=== PATIENT | male | born 1935 | race Caucasian/White ===

== ENCOUNTER → 2017-12-18 | Outpatient (CLI) | payer OTHER ==
[~2017-12-18] MED LIST: ASPI-515 PO; AZIT250T PO; CEFD300C37 PO; CHLO12TA PO; DOCU-131 PO; FURO20TA3 PO; GUAI5LIQ PO; LISI5TAB7 PO; METO25TA91 PO; OXYC1TAB7 PO; POTA20TA6 PO; SIMV20TA PO
== END | disposition home or self-care (01) ==
LOC: CFH 14:31
PROVIDERS: ATTEND Internal Medicine Cardiovascular Disease
DX: R91.8 Other nonspecific abnormal finding of lung field (principal); J90 Pleural effusion, not elsewhere classified; J96.91 Respiratory failure, unspecified with hypoxia; I10 Essential (primary) hypertension; I42.0 Dilated cardiomyopathy; R94.31 Abnormal electrocardiogram [ECG] [EKG]
CPT/HCPCS: 71046

== ENCOUNTER 2018-02-05 10:54 | Inpatient (IN) | payer OTHER ==
[~2018-02-05] VITALS: Ht 175.3 cm; Wt 67.1 kg
[~2018-02-05 10:54] MED LIST changes: +LEVO750T26 PO
[2018-02-05] MEDS ORDERED: PANTOPRAZOLE 80 MG in SODIUM CHLORIDE 0.9% 100 ML IV SCH (11:03)
[2018-02-05] MEDS ORDERED: SODIUM CHLORIDE 0.9% 1,000 ML IV ONE (11:03)
[2018-02-05] MEDS ORDERED: PANTOPRAZOLE 80 MG in SODIUM CHLORIDE 0.9% 50 ML IVPB ONE (11:03)
[2018-02-05 11:24] LABS: BASOPHILS # (AUTO) 0.02 x10^3/uL (0-0.1); BASOPHILS % (AUTO) 0 % (0-1); EOSINOPHILS # (AUTO) 0.45 x10^3/uL (0-0.4); EOSINOPHILS % (AUTO) 7 % (1-7); LYMPHOCYTES # (AUTO) 0.62 x10^3/uL (1-3.4); LYMPHOCYTES % (AUTO) 9 % (22-44); MD NO; MEAN CORPUSCULAR HEMOGLOBIN 28.8 pg (27.5-34.5); MEAN CORPUSCULAR HGB CONC 32.9 g/dL (33.2-36.2); MEAN CORPUSCULAR VOLUME 87.3 fL (81-97); MEAN PLATELET VOLUME 7.8 fL (7.4-10.4); MONOCYTES # (AUTO) 0.67 x10^3/uL (0.2-0.8); MONOCYTES % (AUTO) 10 % (2-9); NEUTROPHILS # (AUTO) 4.93 x10^3/uL (1.8-6.8); NEUTROPHILS % (AUTO) 74 % (42-75); PLATELET COUNT 379 x10^3/uL (130-400); RED BLOOD COUNT 3.76 x10^6/uL (4.38-5.82); RED CELL DISTRIBUTION WIDTH 15.4 % (9.4-14.8)
[2018-02-05 11:30] LABS: INTERNATIONAL NORMALIZED RATIO 1.01 (0.93-1.1); PROTHROMBIN TIME 10.5 Seconds (9.6-11.5)
[2018-02-05] MEDS ORDERED: SODIUM CHLORIDE 0.9% 1,000ML IVBOLUS ONE (11:30)
[2018-02-05] MEDS ORDERED: SODIUM CHLORIDE FLUSH 10ML SYR IVF ONE (11:30)
[2018-02-05 11:33] LABS: ALBUMIN 2.2 g/dL (3.4-5.0); ANION GAP 4 mmol/L (5-15); CALCIUM 8.3 mg/dL (8.5-10.1); CHLORIDE 98 mmol/L (98-107); CREATININE 0.58 mg/dL (0.7-1.3)
[2018-02-05 11:36] LABS: ALANINE AMINOTRANSFERASE 25 U/L (12-78); ALKALINE PHOSPHATASE 76 U/L (45-117); BILIRUBIN,TOTAL 0.3 mg/dL (0.2-1.0); TOTAL PROTEIN 6.5 g/dL (6.4-8.2)
[2018-02-05] MEDS ORDERED: METR500T8 PO (11:41)
[2018-02-05] MEDS ORDERED: ENOX80SY5 SQ (11:41)
[2018-02-05] MEDS ORDERED: HYDR-3245 PO (11:41)
[2018-02-05] MEDS ORDERED: ASPI-496 PO (11:41)
[2018-02-05] MEDS ORDERED: BISACODYL 10 MG SUPP PR PRN (13:00)
[2018-02-05] MEDS ORDERED: PROMETHAZINE 25 MG/ML, 1ML IM PRN (13:00)
[2018-02-05] MEDS: LACTOBACILLUS CHEW TABLET PO SCH ×3 (13:00→20:23)
[2018-02-05] MEDS ORDERED: VANCOMYCIN PMX 1GM/200ML 200 ML IV ONE (13:00)
[2018-02-05] MEDS ORDERED: LABETALOL 5MG/ML, 20ML IVPush PRN (13:00)
[2018-02-05] MEDS ORDERED: ONDANSETRON 2MG/ML, 2ML IVPush PRN (13:00)
[2018-02-05] MEDS ORDERED: morphine SULFATE 10 MG/ML, 1ML IVPush PRN (13:00)
[2018-02-05] MEDS ORDERED: VANCOMYCIN PER PHARMACY MC PRN (13:00)
[2018-02-05] MEDS ORDERED: ONDANSETRON ODT 4 MG PO PRN (13:00)
[2018-02-05] MEDS ORDERED: hydrALAzine 20 MG/ML, 1ML IVPush PRN (13:00)
[2018-02-05] MEDS ORDERED: POLYETHYLENE GLYCOL 17 GM PACKET PO PRN (13:00)
[2018-02-05] MEDS ORDERED: OMNIPAQUE 350 MG/ML, 100ML BOTTLE ONE (13:47)
[2018-02-05 13:49] LABS: HEMOGLOBIN A1C 5.7 % (4.2-6.3)
[2018-02-05 13:50] LABS: FREE T4 (FREE THYROXINE) 1.05 ng/dL (0.76-1.46); THYROID STIMULATING HORMONE 1.34 mIU/L (0.358-3.740)
[2018-02-05] MEDS: PIPERACILLIN/TAZO/PMX 3.375GM 50 ML IV SCH ×2 (14:01→20:23)
[2018-02-05] MEDS ORDERED: PHARMACOKINETIC CONSULTATION MC ONE (14:30)
[2018-02-05] MEDS ORDERED: PHARMACOKINETIC MONITORING MC PRN (14:30)
[2018-02-05 14:40] VITALS: BP 102/47
[2018-02-05 14:56] LABS: MICROSCOPIC INDICATED
[2018-02-05 14:59] LABS: CULTURE INDICATED? NO
[2018-02-05] MEDS: PANTOPRAZOLE 40 MG IV IVPush SCH (15:54)
[2018-02-05] MEDS: VANCOMYCIN 1,200 MG in SODIUM CHLORIDE 0.9% 250 ML IV SCH (15:57)
[2018-02-05 17:43] VITALS: BP 121/67
[2018-02-05 19:15] VITALS: BP 105/59
[2018-02-06 02:00] VITALS: BP 117/67
[2018-02-06] MEDS: PIPERACILLIN/TAZO/PMX 3.375GM 50 ML IV SCH ×4 (02:40→20:49)
[2018-02-06] MEDS: METOPROLOL SUCCINATE 25 MG TAB.ER.24H PO SCH (05:44)
[2018-02-06] MEDS: LACTOBACILLUS CHEW TABLET PO SCH ×4 (05:45→20:49)
[2018-02-06 05:53] LABS: CHLORIDE 104 mmol/L (98-107)
[2018-02-06 06:02] LABS: ALANINE AMINOTRANSFERASE 17 U/L (12-78); ALBUMIN 1.9 g/dL (3.4-5.0); ALKALINE PHOSPHATASE 59 U/L (45-117); ANION GAP 4 mmol/L (5-15); BILIRUBIN,TOTAL 0.5 mg/dL (0.2-1.0); CALCIUM 8.3 mg/dL (8.5-10.1); CHOL/HDL RATIO 2.8; CHOLESTEROL, TOTAL 130 mg/dL (140-239); CREATININE 0.51 mg/dL (0.7-1.3); HDL CHOL % 35 % (26-37); HDL CHOLESTEROL (DIRECT) 46 mg/dL (40-60); LDL CHOLESTEROL,CALCULATED 69 mg/dL (54-169); LDL/HDL RATIO 1.5 (0.5-3.0); TOTAL PROTEIN 5.6 g/dL (6.4-8.2); TRIGLYCERIDES 75 mg/dL (50-200); VLDL CHOLESTEROL 15 mg/dL (0-25)
[2018-02-06 06:09] LABS: BASOPHILS # (AUTO) 0.05 x10^3/uL (0-0.1); BASOPHILS % (AUTO) 1 % (0-1); EOSINOPHILS # (AUTO) 0.41 x10^3/uL (0-0.4); EOSINOPHILS % (AUTO) 7 % (1-7); LYMPHOCYTES # (AUTO) 0.56 x10^3/uL (1-3.4); LYMPHOCYTES % (AUTO) 10 % (22-44); MD NO; MEAN CORPUSCULAR HEMOGLOBIN 28.4 pg (27.5-34.5); MEAN CORPUSCULAR HGB CONC 32.9 g/dL (33.2-36.2); MEAN CORPUSCULAR VOLUME 86.3 fL (81-97); MEAN PLATELET VOLUME 7.7 fL (7.4-10.4); MONOCYTES # (AUTO) 0.72 x10^3/uL (0.2-0.8); MONOCYTES % (AUTO) 13 % (2-9); NEUTROPHILS % (AUTO) 69 % (42-75); PLATELET COUNT 325 x10^3/uL (130-400); RED BLOOD COUNT 3.22 x10^6/uL (4.38-5.82); RED CELL DISTRIBUTION WIDTH 15.1 % (9.4-14.8)
[2018-02-06] MEDS: SENNA/DOCUSATE TABLET PO SCH (07:25)
[2018-02-06 09:00] VITALS: BP 97/59
[2018-02-06 12:48] VITALS: BP 122/70
[2018-02-06] MEDS: PANTOPRAZOLE 40 MG IV IVPush SCH (14:31)
[2018-02-06 14:41] VITALS: BP 99/61
[2018-02-06] MEDS: VANCOMYCIN 1,200 MG in SODIUM CHLORIDE 0.9% 250 ML IV SCH (15:52)
[2018-02-06 19:09] VITALS: BP 104/59
[2018-02-07 02:10] VITALS: BP 129/69
[2018-02-07] MEDS: PIPERACILLIN/TAZO/PMX 3.375GM 50 ML IV SCH ×4 (02:26→21:51)
[2018-02-07 03:47] LABS: BASOPHILS # (AUTO) 0.01 x10^3/uL (0-0.1); BASOPHILS % (AUTO) 0 % (0-1); EOSINOPHILS # (AUTO) 0.23 x10^3/uL (0-0.4); EOSINOPHILS % (AUTO) 3 % (1-7); LYMPHOCYTES # (AUTO) 0.54 x10^3/uL (1-3.4); LYMPHOCYTES % (AUTO) 7 % (22-44); MD NO; MEAN CORPUSCULAR HEMOGLOBIN 28.4 pg (27.5-34.5); MEAN CORPUSCULAR HGB CONC 32.2 g/dL (33.2-36.2); MEAN PLATELET VOLUME 7.9 fL (7.4-10.4); MONOCYTES # (AUTO) 0.76 x10^3/uL (0.2-0.8); MONOCYTES % (AUTO) 10 % (2-9); NEUTROPHILS # (AUTO) 6.11 x10^3/uL (1.8-6.8); NEUTROPHILS % (AUTO) 80 % (42-75); PLATELET COUNT 321 x10^3/uL (130-400); RED BLOOD COUNT 3.08 x10^6/uL (4.38-5.82)
[2018-02-07 03:54] LABS: ANION GAP 4 mmol/L (5-15); CALCIUM 8.3 mg/dL (8.5-10.1); CHLORIDE 103 mmol/L (98-107); CREATININE 0.62 mg/dL (0.7-1.3)
[2018-02-07] MEDS: ACETAMINOPHEN 325 MG TABLET PO PRN ×2 (04:38→04:44)
[2018-02-07] MEDS: LACTOBACILLUS CHEW TABLET PO SCH ×4 (06:28→20:01)
[2018-02-07] MEDS: METOPROLOL SUCCINATE 25 MG TAB.ER.24H PO SCH (06:28)
[2018-02-07 08:15] VITALS: BP 100/57
[2018-02-07] MEDS ORDERED: PROPOFOL 10 MG/ML, 20ML ONE ×2 (08:37→11:27)
[2018-02-07] MEDS ORDERED: FENTANYL PF 250 MCG/5ML ONE (08:37)
[2018-02-07] MEDS ORDERED: ROCURONIUM 10MG/ML,5ML ONE ×2 (08:38→11:28)
[2018-02-07] MEDS ORDERED: WATER-INJECTION,STERILE 10 ML IV ONE (08:38)
[2018-02-07] MEDS ORDERED: CEFAZOLIN 1,000 MG ONE ×2 (08:38)
[2018-02-07] MEDS ORDERED: NEOSTIGMINE 1 MG/ML, 10ML ONE (08:39)
[2018-02-07] MEDS ORDERED: GLYCOPYRROLATE 0.4 MG/2 ML, 2ML ONE ×2 (08:39→09:58)
[2018-02-07] MEDS ORDERED: NEOSPORIN OINT, 15GM ONE (08:47)
[2018-02-07] MEDS ORDERED: BUPIVACAINE/PF-EPI 0.5% 1:200K ONE (08:47)
[2018-02-07] MEDS ORDERED: hydrALAzine 20 MG/ML, 1ML IV PRN (09:00)
[2018-02-07] MEDS ORDERED: MEPERIDINE/PF 25MG/0.5ML IVPush PRN (09:00)
[2018-02-07] MEDS ORDERED: OXYcodone 5 MG/5 ML ORAL.SOL UDC PO PRN (09:00)
[2018-02-07] MEDS ORDERED: PROMETHAZINE 25 MG/ML, 1ML IV PRN (09:00)
[2018-02-07] MEDS ORDERED: ONDANSETRON ODT 8 MG PO PRN (09:00)
[2018-02-07] MEDS ORDERED: HYDROmorphone 1 MG/ML, 1ML IV PRN ×2 (09:00→13:00)
[2018-02-07] MEDS ORDERED: PROMETHAZINE 25 MG SUPP PR PRN (09:00)
[2018-02-07] MEDS ORDERED: FENTANYL PF 100 MCG/2ML IV PRN (09:00)
[2018-02-07] MEDS ORDERED: ALBUTEROL SULFATE 2.5 MG/3 ML NPPB PRN (09:00)
[2018-02-07] MEDS ORDERED: PROMETHAZINE 12.5 MG SUPP PR PRN (09:00)
[2018-02-07] MEDS ORDERED: LABETALOL 5MG/ML, 20ML IV PRN (09:00)
[2018-02-07] MEDS ORDERED: BUPIVACAINE/PF-EPI 0.5% 1:200K IM ONE (09:53)
[2018-02-07] MEDS: MORPHINE SULFATE 4 MG/ML, 1ML IVPush PRN ×4 (10:55→11:30)
[2018-02-07] MEDS ORDERED: MORPHINE SULFATE 4 MG/ML, 1ML ONE (10:55)
[2018-02-07] MEDS ORDERED: MIDAZOLAM 1 MG/ML, 2ML ONE (11:25)
[2018-02-07] MEDS ORDERED: PROPOFOL 100 ML IV ONE (12:14)
[2018-02-07] MEDS ORDERED: PROPOFOL 100 ML IV PRN (12:30)
[2018-02-07] MEDS ORDERED: ONDANSETRON 2MG/ML, 2ML IV PRN ×2 (13:00)
[2018-02-07] MEDS: PANTOPRAZOLE 40 MG IV IVPush SCH (13:00)
[2018-02-07] MEDS ORDERED: ONDANSETRON ODT 4 MG PO PRN (13:00)
[2018-02-07] MEDS ORDERED: POTASSIUM CHLORIDE 20 MEQ in LACTATED RINGERS 1,000 ML IV SCH (13:00)
[2018-02-07] MEDS ORDERED: SENNOSIDES 8.8 MG/5 ML ORAL SOL NG PRN (13:30)
[2018-02-07] MEDS ORDERED: FENTANYL PF 100 MCG/2ML IVPush PRN (13:30)
[2018-02-07] MEDS ORDERED: PHARMACY MAY ADJ FOR RENAL FX MC SCH (13:30)
[2018-02-07] MEDS ORDERED: SODIUM CHLORIDE 0.9%, 500ML IV ONE (13:30)
[2018-02-07] MEDS: ALBUTEROL/IPRATROPIUM 2.5MG/0.5MG, 3 ML INLINE SCH ×3 (13:30→22:44)
[2018-02-07] MEDS ORDERED: LACTULOSE 20 GM/30 ML UDC NG PRN (13:30)
[2018-02-07] MEDS ORDERED: LIDOCAINE-MPF 1%, 2ML ENDO PRN (13:30)
[2018-02-07] MEDS ORDERED: SENNA/DOCUSATE TABLET NG PRN (13:30)
[2018-02-07] MEDS ORDERED: BISACODYL 10 MG SUPP PR PRN (13:30)
[2018-02-07] MEDS: SENNA/DOCUSATE TABLET PO SCH (13:31)
[2018-02-07] MEDS: SODIUM CHLORIDE 0.9% 1,000 ML IV SCH (15:25)
[2018-02-07] MEDS ORDERED: HYDROmorphone 2 MG/ML, 1ML ONE (16:42)
[2018-02-07] MEDS ORDERED: SODIUM CHLORIDE 0.9%, 500ML IVBOLUS ONE ×3 (17:00→21:00)
[2018-02-07] MEDS: PROPOFOL 100 ML IV PRN (17:31)
[2018-02-07] MEDS: VANCOMYCIN 1,200 MG in SODIUM CHLORIDE 0.9% 250 ML IV SCH (17:39)
[2018-02-07] MEDS ORDERED: NOREPINEPHRINE 4 MG in SODIUM CHLORIDE 0.9% 246 ML IV PRN (18:00)
[2018-02-07] MEDS ORDERED: FENTANYL PF 100 MCG/2ML ONE (19:31)
[2018-02-07] MEDS: FENTANYL PF 100 MCG/2ML IVPush PRN (19:35)
[2018-02-07 21:47] VITALS: BP 80/44
[2018-02-07 22:00] VITALS: BP 114/51
[2018-02-07 22:15] VITALS: BP 94/47
[2018-02-08] MEDS: FENTANYL PF 100 MCG/2ML IVPush PRN ×4 (02:50→15:11)
[2018-02-08] MEDS: PROPOFOL 100 ML IV PRN (02:51)
[2018-02-08] MEDS: ACETAMINOPHEN 650 MG SUPP PR PRN ×2 (02:51→03:06)
[2018-02-08] MEDS: ALBUTEROL/IPRATROPIUM 2.5MG/0.5MG, 3 ML INLINE SCH ×3 (02:57→10:18)
[2018-02-08] MEDS: PIPERACILLIN/TAZO/PMX 3.375GM 50 ML IV SCH ×4 (03:27→21:43)
[2018-02-08] MEDS: SODIUM CHLORIDE 0.9% 1,000 ML IV SCH ×3 (03:27→21:44)
[2018-02-08] MEDS: LACTOBACILLUS CHEW TABLET PO SCH ×4 (03:27→21:43)
[2018-02-08] MEDS: METOPROLOL SUCCINATE 25 MG TAB.ER.24H PO SCH (03:27)
[2018-02-08 05:49] LABS: MEAN CORPUSCULAR HEMOGLOBIN 29.6 pg (27.5-34.5); MEAN CORPUSCULAR VOLUME 87.2 fL (81-97); MEAN PLATELET VOLUME 8.4 fL (7.4-10.4); PLATELET COUNT 274 x10^3/uL (130-400); RED BLOOD COUNT 2.59 x10^6/uL (4.38-5.82); RED CELL DISTRIBUTION WIDTH 15.1 % (9.4-14.8)
[2018-02-08 05:51] LABS: CHLORIDE 107 mmol/L (98-107)
[2018-02-08 06:01] LABS: ALANINE AMINOTRANSFERASE 13 U/L (12-78); ALBUMIN 1.7 g/dL (3.4-5.0); ALKALINE PHOSPHATASE 51 U/L (45-117); ANION GAP 6 mmol/L (5-15); CALCIUM 7.4 mg/dL (8.5-10.1); TOTAL PROTEIN 4.9 g/dL (6.4-8.2)
[2018-02-08 06:13] LABS: BASOPHILS # (AUTO) 0.02 x10^3/uL (0-0.1); BASOPHILS % (AUTO) 0 % (0-1); EOSINOPHILS # (AUTO) 0.01 x10^3/uL (0-0.4); EOSINOPHILS % (AUTO) 0 % (1-7); LYMPHOCYTES # (AUTO) 0.59 x10^3/uL (1-3.4); LYMPHOCYTES % (AUTO) 6 % (22-44); MD SCAN; MONOCYTES # (AUTO) 1.06 x10^3/uL (0.2-0.8); MONOCYTES % (AUTO) 11 % (2-9); NEUTROPHILS % (AUTO) 83 % (42-75)
[2018-02-08] MEDS: SENNA/DOCUSATE TABLET PO SCH (07:48)
[2018-02-08] MEDS: PANTOPRAZOLE 40 MG IV IV SCH (09:14)
[2018-02-08] MEDS ORDERED: MAGNESIUM SULFATE 3 GM in SODIUM CHLORIDE 0.9% 100 ML IV ONE (11:30)
[2018-02-08] MEDS ORDERED: PHENYLEPHRINE NASAL 1%, 15ML SPRAY NAS PRN (11:30)
[2018-02-08] MEDS ORDERED: ALBUTEROL/IPRATROPIUM 2.5MG/0.5MG, 3 ML NPPB SCH (13:00)
[2018-02-08] MEDS: OXYcodone IR 5MG TABLET PO PRN ×3 (16:40→23:34)
[2018-02-08] MEDS: VANCOMYCIN 1,200 MG in SODIUM CHLORIDE 0.9% 250 ML IV SCH (18:07)
[2018-02-09] VITALS (8 sets, daily range): BP systolic 99–127; BP diastolic 43–61
[2018-02-09] MEDS: PIPERACILLIN/TAZO/PMX 3.375GM 50 ML IV SCH ×4 (03:34→21:52)
[2018-02-09] MEDS: SODIUM CHLORIDE 0.9% 1,000 ML IV SCH (03:35)
[2018-02-09 04:04] LABS: ANION GAP 2 mmol/L (5-15); CALCIUM 7.7 mg/dL (8.5-10.1); CHLORIDE 110 mmol/L (98-107); CREATININE 0.49 mg/dL (0.7-1.3)
[2018-02-09 04:35] LABS: BASOPHILS # (AUTO) 0.02 x10^3/uL (0-0.1); BASOPHILS % (AUTO) 0 % (0-1); EOSINOPHILS # (AUTO) 0.08 x10^3/uL (0-0.4); EOSINOPHILS % (AUTO) 1 % (1-7); LYMPHOCYTES # (AUTO) 0.57 x10^3/uL (1-3.4); LYMPHOCYTES % (AUTO) 6 % (22-44); MD NO; MEAN CORPUSCULAR HEMOGLOBIN 29.7 pg (27.5-34.5); MEAN CORPUSCULAR HGB CONC 33.7 g/dL (33.2-36.2); MEAN CORPUSCULAR VOLUME 88.1 fL (81-97); MEAN PLATELET VOLUME 8.3 fL (7.4-10.4); MONOCYTES # (AUTO) 1.07 x10^3/uL (0.2-0.8); MONOCYTES % (AUTO) 11 % (2-9); NEUTROPHILS # (AUTO) 7.84 x10^3/uL (1.8-6.8); NEUTROPHILS % (AUTO) 82 % (42-75); PLATELET COUNT 224 x10^3/uL (130-400); RED BLOOD COUNT 2.23 x10^6/uL (4.38-5.82); RED CELL DISTRIBUTION WIDTH 15.3 % (9.4-14.8)
[2018-02-09] MEDS: METOPROLOL SUCCINATE 25 MG TAB.ER.24H PO SCH (06:02)
[2018-02-09] MEDS: LACTOBACILLUS CHEW TABLET PO SCH ×4 (06:02→21:51)
[2018-02-09] MEDS: OXYcodone IR 5MG TABLET PO PRN (06:34)
[2018-02-09] MEDS: PANTOPRAZOLE 40 MG IV IV SCH (07:25)
[2018-02-09] MEDS: SENNA/DOCUSATE TABLET PO SCH (07:25)
[2018-02-09] MEDS ORDERED: SODIUM PHOSPHATE 20 MMOL in SODIUM CHLORIDE 0.9% 500 ML IV ONE (07:30)
[2018-02-09] MEDS: DOXYCYCLINE 100 MG in DEXTROSE 5% 250 ML IV SCH ×2 (09:45→22:55)
[2018-02-09] MEDS ORDERED: SILVER NITRATE STICK TP ONE (17:17)
[2018-02-09] MEDS: ALBUTEROL/IPRATROPIUM 2.5MG/0.5MG, 3 ML NPPB PRN (20:50)
[2018-02-09] MEDS: SODIUM CHLORIDE FLUSH 10ML SYR IVF SCH (21:52)
[2018-02-09] MEDS: OXYMETAZOLINE NASAL SPRAY 0.05%, 15ML NAS SCH (21:52)
[2018-02-10] MEDS: OXYcodone IR 5MG TABLET PO PRN ×3 (02:38→22:45)
[2018-02-10] MEDS: PIPERACILLIN/TAZO/PMX 3.375GM 50 ML IV SCH ×3 (03:30→17:49)
[2018-02-10 04:06] VITALS: BP 117/57
[2018-02-10] MEDS: ALBUTEROL/IPRATROPIUM 2.5MG/0.5MG, 3 ML NPPB PRN ×2 (04:30→11:43)
[2018-02-10 05:58] VITALS: BP 100/48
[2018-02-10] MEDS: METOPROLOL SUCCINATE 25 MG TAB.ER.24H PO SCH (06:00)
[2018-02-10] MEDS: LACTOBACILLUS CHEW TABLET PO SCH ×4 (06:07→20:58)
[2018-02-10] MEDS ORDERED: SODIUM PHOSPHATE 10 MMOL in SODIUM CHLORIDE 0.9% 500 ML IV ONE (07:30)
[2018-02-10] MEDS: OXYMETAZOLINE NASAL SPRAY 0.05%, 15ML NAS SCH ×2 (09:00→20:58)
[2018-02-10] MEDS: SENNA/DOCUSATE TABLET PO SCH ×3 (09:00→17:52)
[2018-02-10 09:13] VITALS: BP 106/50
[2018-02-10] MEDS: SODIUM CHLORIDE FLUSH 10ML SYR IVF SCH ×2 (10:57→20:59)
[2018-02-10] MEDS: DOXYCYCLINE 100 MG in DEXTROSE 5% 250 ML IV SCH (10:57)
[2018-02-10] MEDS ORDERED: LIDOCAINE-MPF 1%, 2ML ONE (11:42)
[2018-02-10 15:25] VITALS: BP 110/58
[2018-02-10 19:14] VITALS: BP 104/52
[2018-02-10] MEDS: DOXYCYCLINE 100MG CAP PO SCH (20:58)
[2018-02-11] MEDS: PIPERACILLIN/TAZO/PMX 3.375GM 50 ML IV SCH ×4 (00:08→18:54)
[2018-02-11 00:27] VITALS: BP 108/57
[2018-02-11] MEDS: OXYcodone IR 5MG TABLET PO PRN (04:56)
[2018-02-11] MEDS: ALBUTEROL/IPRATROPIUM 2.5MG/0.5MG, 3 ML NPPB PRN (05:24)
[2018-02-11] MEDS: LACTOBACILLUS CHEW TABLET PO SCH ×4 (05:46→21:29)
[2018-02-11] MEDS: METOPROLOL SUCCINATE 25 MG TAB.ER.24H PO SCH (05:46)
[2018-02-11 08:17] LABS: BASOPHILS # (AUTO) 0.02 x10^3/uL (0-0.1); BASOPHILS % (AUTO) 0 % (0-1); EOSINOPHILS # (AUTO) 0.34 x10^3/uL (0-0.4); EOSINOPHILS % (AUTO) 5 % (1-7); LYMPHOCYTES % (AUTO) 7 % (22-44); MD NO; MEAN CORPUSCULAR HEMOGLOBIN 29.4 pg (27.5-34.5); MEAN CORPUSCULAR HGB CONC 32.9 g/dL (33.2-36.2); MEAN CORPUSCULAR VOLUME 89.3 fL (81-97); MEAN PLATELET VOLUME 7.8 fL (7.4-10.4); MONOCYTES # (AUTO) 0.92 x10^3/uL (0.2-0.8); MONOCYTES % (AUTO) 12 % (2-9); NEUTROPHILS % (AUTO) 76 % (42-75); PLATELET COUNT 232 x10^3/uL (130-400); RED BLOOD COUNT 2.83 x10^6/uL (4.38-5.82); RED CELL DISTRIBUTION WIDTH 15.3 % (9.4-14.8)
[2018-02-11] MEDS: DOXYCYCLINE 100MG CAP PO SCH ×2 (08:35→21:29)
[2018-02-11] MEDS: SENNA/DOCUSATE TABLET PO SCH (08:35)
[2018-02-11] MEDS: OXYMETAZOLINE NASAL SPRAY 0.05%, 15ML NAS SCH ×2 (08:35→21:30)
[2018-02-11] MEDS: SODIUM CHLORIDE FLUSH 10ML SYR IVF SCH ×2 (08:36→21:30)
[2018-02-11 09:43] VITALS: BP 105/60
[2018-02-11 14:28] VITALS: BP 123/65
[2018-02-11 21:06] VITALS: BP 115/66
[2018-02-12] MEDS: PIPERACILLIN/TAZO/PMX 3.375GM 50 ML IV SCH ×5 (00:15→23:52)
[2018-02-12 01:56] VITALS: BP 128/69
[2018-02-12 05:55] VITALS: BP 113/67
[2018-02-12] MEDS: LACTOBACILLUS CHEW TABLET PO SCH ×4 (05:56→21:25)
[2018-02-12] MEDS: METOPROLOL SUCCINATE 25 MG TAB.ER.24H PO SCH (05:56)
[2018-02-12] MEDS: OXYMETAZOLINE NASAL SPRAY 0.05%, 15ML NAS SCH (07:20)
[2018-02-12] MEDS ORDERED: OXYM15SP8 NAS (07:59)
[2018-02-12] MEDS ORDERED: DOXY100C2 PO (07:59)
[2018-02-12] MEDS ORDERED: ACID1TAB7 PO (07:59)
[2018-02-12 08:11] VITALS: BP 105/56
[2018-02-12] MEDS: SENNA/DOCUSATE TABLET PO SCH (09:10)
[2018-02-12] MEDS: DOXYCYCLINE 100MG CAP PO SCH ×2 (09:10→21:25)
[2018-02-12] MEDS: SODIUM CHLORIDE FLUSH 10ML SYR IVF SCH ×2 (09:11→21:25)
[2018-02-12 14:32] VITALS: BP 115/64
[2018-02-12] MEDS ORDERED: PIPE3.373 IV (15:53)
[2018-02-12 18:44] VITALS: BP 107/61
[2018-02-13 01:29] VITALS: BP 96/54
[2018-02-13] MEDS: LACTOBACILLUS CHEW TABLET PO SCH ×4 (05:41→20:51)
[2018-02-13] MEDS: PIPERACILLIN/TAZO/PMX 3.375GM 50 ML IV SCH ×3 (05:43→17:14)
[2018-02-13 05:44] VITALS: BP 105/56
[2018-02-13] MEDS: METOPROLOL SUCCINATE 25 MG TAB.ER.24H PO SCH (05:44)
[2018-02-13 08:00] VITALS: BP 106/53
[2018-02-13] MEDS: DOXYCYCLINE 100MG CAP PO SCH ×2 (08:26→20:51)
[2018-02-13] MEDS: SENNA/DOCUSATE TABLET PO SCH (08:26)
[2018-02-13] MEDS: SODIUM CHLORIDE FLUSH 10ML SYR IVF SCH ×2 (08:32→20:51)
[2018-02-13 13:59] VITALS: BP 100/58
[2018-02-13 18:45] VITALS: BP 127/62
[2018-02-14] MEDS: PIPERACILLIN/TAZO/PMX 3.375GM 50 ML IV SCH ×4 (00:21→18:11)
[2018-02-14 01:08] VITALS: BP 113/60
[2018-02-14] MEDS: METOPROLOL SUCCINATE 25 MG TAB.ER.24H PO SCH (06:14)
[2018-02-14] MEDS: LACTOBACILLUS CHEW TABLET PO SCH ×4 (06:14→21:30)
[2018-02-14 07:05] VITALS: BP 109/66
[2018-02-14] MEDS: DOXYCYCLINE 100MG CAP PO SCH ×2 (10:56→21:30)
[2018-02-14] MEDS: SENNA/DOCUSATE TABLET PO SCH (10:56)
[2018-02-14] MEDS: SODIUM CHLORIDE FLUSH 10ML SYR IVF SCH ×2 (11:04→21:30)
[2018-02-14 13:36] VITALS: BP 97/54
[2018-02-14 19:13] VITALS: BP 102/54
[2018-02-14] MEDS: ACETAMINOPHEN 325 MG TABLET PO PRN (21:30)
[2018-02-15] MEDS: PIPERACILLIN/TAZO/PMX 3.375GM 50 ML IV SCH ×5 (00:08→23:43)
[2018-02-15 02:22] VITALS: BP 105/61
[2018-02-15 06:30] VITALS: BP 119/58
[2018-02-15] MEDS: METOPROLOL SUCCINATE 25 MG TAB.ER.24H PO SCH (06:33)
[2018-02-15] MEDS: LACTOBACILLUS CHEW TABLET PO SCH ×4 (06:34→20:40)
[2018-02-15] MEDS: DOXYCYCLINE 100MG CAP PO SCH ×2 (07:57→20:40)
[2018-02-15] MEDS: SODIUM CHLORIDE FLUSH 10ML SYR IVF SCH ×2 (07:57→22:12)
[2018-02-15] MEDS: SENNA/DOCUSATE TABLET PO SCH (07:57)
[2018-02-15 12:13] VITALS: BP 120/63
[2018-02-15 18:47] VITALS: BP 102/56
[2018-02-15] MEDS: ACETAMINOPHEN 325 MG TABLET PO PRN (22:12)
[2018-02-16 02:19] VITALS: BP 114/66
[2018-02-16] MEDS: ACETAMINOPHEN 325 MG TABLET PO PRN (06:09)
[2018-02-16] MEDS: LACTOBACILLUS CHEW TABLET PO SCH ×2 (06:09→11:50)
[2018-02-16] MEDS: METOPROLOL SUCCINATE 25 MG TAB.ER.24H PO SCH (06:09)
[2018-02-16] MEDS: PIPERACILLIN/TAZO/PMX 3.375GM 50 ML IV SCH ×2 (06:09→11:50)
[2018-02-16 08:15] VITALS: BP 124/58
[2018-02-16] MEDS: SODIUM CHLORIDE FLUSH 10ML SYR IVF SCH (10:02)
[2018-02-16] MEDS: DOXYCYCLINE 100MG CAP PO SCH (10:02)
[2018-02-16] MEDS: SENNA/DOCUSATE TABLET PO SCH (10:02)
[2018-02-16 14:20] VITALS: BP 118/62
== END 2018-02-16 15:07 | DRG 163 ==
LOC: ED 11:19 → EDIP 12:54 → 4WST 14:23 → CCU 02-07 11:49 → 4NOR 02-09 11:12
PROVIDERS: ADMIT Internal Medicine; ATTEND Internal Medicine
PROC: 30233N1 Transfusion of Nonautologous Red Blood Cells into Peripheral Vein, Percutaneous Approach (ICD-10-PCS; 2018-02-07)
PROC: 02HV33Z Insertion of Infusion Device into Superior Vena Cava, Percutaneous Approach (ICD-10-PCS; 2018-02-07)
PROC: 0BH17EZ Insertion of Endotracheal Airway into Trachea, Via Natural or Artificial Opening (ICD-10-PCS; 2018-02-07)
PROC: 0BNK0ZZ Release Right Lung, Open Approach (ICD-10-PCS; principal; 2018-02-07 09:00)
PROC: 02HV33Z Insertion of Infusion Device into Superior Vena Cava, Percutaneous Approach (ICD-10-PCS; 2018-02-12)
PROC: B548ZZA Ultrasonography of Superior Vena Cava, Guidance (ICD-10-PCS; 2018-02-12)
DX: J85.0 Gangrene and necrosis of lung (principal); J96.20 Acute and chronic respiratory failure, unspecified whether with hypoxia or hypercapnia; E43 Unspecified severe protein-calorie malnutrition; J15.1 Pneumonia due to Pseudomonas; Z99.11 Dependence on respirator [ventilator] status; J96.10 Chronic respiratory failure, unspecified whether with hypoxia or hypercapnia; I11.0 Hypertensive heart disease with heart failure; I47.2 Ventricular tachycardia; I42.9 Cardiomyopathy, unspecified; I50.22 Chronic systolic (congestive) heart failure; L89.90 Pressure ulcer of unspecified site, unspecified stage; D64.9 Anemia, unspecified; B96.5 Pseudomonas (aeruginosa) (mallei) (pseudomallei) as the cause of diseases classified elsewhere; Z16.11 Resistance to penicillins; Z91.018 Allergy to other foods; Z68.21 Body mass index [BMI] 21.0-21.9, adult; E78.5 Hyperlipidemia, unspecified; I34.0 Nonrheumatic mitral (valve) insufficiency; M19.90 Unspecified osteoarthritis, unspecified site; M40.209 Unspecified kyphosis, site unspecified; R04.0 Epistaxis; Z99.81 Dependence on supplemental oxygen; Z16.23 Resistance to quinolones and fluoroquinolones; B95.7 Other staphylococcus as the cause of diseases classified elsewhere
CPT/HCPCS: 36415; 36430; 36569; 36600; 71045; 71260; 76937; 77001; 80048; 80053; 80061; 80202; 81001; 82533; 82803; 82805; 83036; 83735; 84100; 84439; 84443; 84478; 85014; 85018; 85025; 85610; 85730; 86850; 86900; 86923; 87040; 87070; 87077; 87081; 87186; 87205; 93005; 94002; 94640; C1729; J0690; J1170; J2250; J2543; J2704; J2710; J3010; J3370; J3475; J3490; J7060; J7620; Q9967; C1751; C9113; J7030; J7040; J7050; P9016

== ENCOUNTER 2018-02-17 09:10 | Inpatient (IN) | payer OTHER ==
[~2018-02-17] VITALS: Ht 167.6 cm; Wt 58.2 kg
[~2018-02-17 09:10] MED LIST changes: +ACID1TAB7 PO; +ASPI-496 PO; +DOXY100C2 PO; +ENOX80SY5 SQ; +HYDR-3245 PO; +METR500T8 PO; +OXYM15SP8 NAS; +PIPE3.373 IV
[2018-02-17 11:23] LABS: MICROSCOPIC INDICATED
[2018-02-17 11:33] LABS: CULTURE INDICATED? YES
[2018-02-17 13:52] LABS: MEAN CORPUSCULAR HEMOGLOBIN 29.7 pg (27.5-34.5); MEAN CORPUSCULAR HGB CONC 32.8 g/dL (33.2-36.2); MEAN CORPUSCULAR VOLUME 90.7 fL (81-97); MEAN PLATELET VOLUME 7.5 fL (7.4-10.4); PLATELET COUNT 405 x10^3/uL (130-400); RED BLOOD COUNT 3.65 x10^6/uL (4.38-5.82); RED CELL DISTRIBUTION WIDTH 15.4 % (9.4-14.8)
[2018-02-17 14:00] LABS: ANION GAP 6 mmol/L (5-15); CALCIUM 9.3 mg/dL (8.5-10.1); CHLORIDE 97 mmol/L (98-107); CREATININE 0.45 mg/dL (0.7-1.3)
[2018-02-17 14:13] LABS: BASOPHILS # (AUTO) 0.04 x10^3/uL (0-0.1); BASOPHILS % (AUTO) 1 % (0-1); EOSINOPHILS # (AUTO) 0.06 x10^3/uL (0-0.4); EOSINOPHILS % (AUTO) 1 % (1-7); LYMPHOCYTES # (AUTO) 0.57 x10^3/uL (1-3.4); LYMPHOCYTES % (AUTO) 9 % (22-44); MD MORPH REVIEW ONLY; MONOCYTES # (AUTO) 0.59 x10^3/uL (0.2-0.8); MONOCYTES % (AUTO) 9 % (2-9); NEUTROPHILS # (AUTO) 5.27 x10^3/uL (1.8-6.8); NEUTROPHILS % (AUTO) 81 % (42-75)
[2018-02-17] MEDS ORDERED: MORPHINE SULFATE 4 MG/ML, 1ML ONE (14:13)
[2018-02-17 14:14] LABS: HYPOCHROMIA 1+
[2018-02-17 14:15] LABS: LARGE PLATELETS 1+
[2018-02-17 14:17] LABS: <PLATELET ESTIMATE> INCREASED
[2018-02-17] MEDS ORDERED: morphine SULFATE 10 MG/ML, 1ML IVPush ONE (14:30)
[2018-02-17] MEDS ORDERED: OMNIPAQUE 350 MG/ML, 100ML BOTTLE ONE (14:47)
[2018-02-17] MEDS ORDERED: POLYETHYLENE GLYCOL 17 GM PACKET PO PRN (18:30)
[2018-02-17] MEDS ORDERED: hydrALAzine 20 MG/ML, 1ML IVPush PRN (18:30)
[2018-02-17] MEDS ORDERED: ACETAMINOPHEN 325 MG TABLET PO PRN (18:30)
[2018-02-17] MEDS ORDERED: PROMETHAZINE 25 MG/ML, 1ML IM PRN (18:30)
[2018-02-17] MEDS ORDERED: BISACODYL 10 MG SUPP PR PRN (18:30)
[2018-02-17] MEDS ORDERED: ONDANSETRON 2MG/ML, 2ML IVPush PRN (18:30)
[2018-02-17] MEDS ORDERED: OXYcodone/APAP 5/325MG TABLET PO PRN (18:30)
[2018-02-17] MEDS ORDERED: ONDANSETRON ODT 4 MG PO PRN (18:30)
[2018-02-17] MEDS ORDERED: PIPERACILLIN/TAZO 3.375 GM VIAL IV SCH (19:00)
[2018-02-17 19:25] LABS: FREE T4 (FREE THYROXINE) 1.2 ng/dL (0.76-1.46); THYROID STIMULATING HORMONE 1.89 mIU/L (0.358-3.740)
[2018-02-17 19:28] LABS: HEMOGLOBIN A1C 5.1 % (4.2-6.3)
[2018-02-17] MEDS: PIPERACILLIN/TAZO/PMX 3.375GM 50 ML IV SCH (20:28)
[2018-02-17] MEDS: OXYMETAZOLINE NASAL SPRAY 0.05%, 15ML NAS SCH (21:00)
[2018-02-17 22:35] VITALS: BP 109/59
[2018-02-18] MEDS: FUROSEMIDE 20 MG TABLET PO SCH ×3 (01:11→20:10)
[2018-02-18] MEDS: DOXYCYCLINE 100MG CAP PO SCH ×3 (01:11→20:10)
[2018-02-18] MEDS: LACTOBACILLUS CHEW TABLET PO SCH ×5 (01:11→20:10)
[2018-02-18] MEDS: PIPERACILLIN/TAZO/PMX 3.375GM 50 ML IV SCH ×4 (02:21→20:10)
[2018-02-18 02:40] VITALS: BP 121/57
[2018-02-18 04:58] LABS: ALANINE AMINOTRANSFERASE 12 U/L (12-78); ALBUMIN 1.7 g/dL (3.4-5.0); ANION GAP 3 mmol/L (5-15); CALCIUM 8.5 mg/dL (8.5-10.1); CHLORIDE 100 mmol/L (98-107); CHOLESTEROL, TOTAL 169 mg/dL (140-239); CREATININE 0.58 mg/dL (0.7-1.3)
[2018-02-18 05:00] LABS: ALKALINE PHOSPHATASE 76 U/L (45-117); BILIRUBIN,TOTAL 0.3 mg/dL (0.2-1.0); CHOL/HDL RATIO 3.8; HDL CHOL % 26 % (26-37); HDL CHOLESTEROL (DIRECT) 44 mg/dL (40-60); LDL CHOLESTEROL,CALCULATED 112 mg/dL (54-169); LDL/HDL RATIO 2.5 (0.5-3.0); TOTAL PROTEIN 5.8 g/dL (6.4-8.2); TRIGLYCERIDES 67 mg/dL (50-200); VLDL CHOLESTEROL 13 mg/dL (0-25)
[2018-02-18 05:09] LABS: BASOPHILS # (AUTO) 0.02 x10^3/uL (0-0.1); BASOPHILS % (AUTO) 0 % (0-1); EOSINOPHILS # (AUTO) 0.12 x10^3/uL (0-0.4); EOSINOPHILS % (AUTO) 2 % (1-7); LYMPHOCYTES # (AUTO) 0.54 x10^3/uL (1-3.4); LYMPHOCYTES % (AUTO) 8 % (22-44); MD NO; MEAN CORPUSCULAR HEMOGLOBIN 30.1 pg (27.5-34.5); MEAN CORPUSCULAR HGB CONC 32.8 g/dL (33.2-36.2); MEAN CORPUSCULAR VOLUME 91.6 fL (81-97); MEAN PLATELET VOLUME 7.5 fL (7.4-10.4); MONOCYTES # (AUTO) 0.91 x10^3/uL (0.2-0.8); MONOCYTES % (AUTO) 14 % (2-9); NEUTROPHILS # (AUTO) 4.93 x10^3/uL (1.8-6.8); NEUTROPHILS % (AUTO) 76 % (42-75); PLATELET COUNT 345 x10^3/uL (130-400); RED CELL DISTRIBUTION WIDTH 15.1 % (9.4-14.8)
[2018-02-18] MEDS: METOPROLOL SUCCINATE 25 MG TAB.ER.24H PO SCH (06:36)
[2018-02-18 07:35] VITALS: BP 130/82
[2018-02-18] MEDS: LISINOPRIL 5 MG TABLET PO SCH (07:57)
[2018-02-18] MEDS: POTASSIUM CHLORIDE 20 MEQ TAB.ER.PRT PO SCH (07:57)
[2018-02-18] MEDS: OXYMETAZOLINE NASAL SPRAY 0.05%, 15ML NAS SCH ×2 (09:00→20:11)
[2018-02-18 13:58] VITALS: BP 81/40
[2018-02-18 19:17] VITALS: BP 95/51
[2018-02-19 01:57] VITALS: BP 117/45
[2018-02-19] MEDS: PIPERACILLIN/TAZO/PMX 3.375GM 50 ML IV SCH ×4 (02:13→20:38)
[2018-02-19 04:28] LABS: BASOPHILS # (AUTO) 0.03 x10^3/uL (0-0.1); BASOPHILS % (AUTO) 1 % (0-1); EOSINOPHILS # (AUTO) 0.21 x10^3/uL (0-0.4); EOSINOPHILS % (AUTO) 4 % (1-7); LYMPHOCYTES # (AUTO) 0.57 x10^3/uL (1-3.4); LYMPHOCYTES % (AUTO) 10 % (22-44); MD NO; MEAN CORPUSCULAR HEMOGLOBIN 30.2 pg (27.5-34.5); MEAN CORPUSCULAR VOLUME 91.4 fL (81-97); MEAN PLATELET VOLUME 7.5 fL (7.4-10.4); MONOCYTES # (AUTO) 0.72 x10^3/uL (0.2-0.8); MONOCYTES % (AUTO) 13 % (2-9); NEUTROPHILS % (AUTO) 73 % (42-75); PLATELET COUNT 342 x10^3/uL (130-400); RED BLOOD COUNT 3.04 x10^6/uL (4.38-5.82); RED CELL DISTRIBUTION WIDTH 15.5 % (9.4-14.8)
[2018-02-19] MEDS: METOPROLOL SUCCINATE 25 MG TAB.ER.24H PO SCH (05:13)
[2018-02-19] MEDS: LACTOBACILLUS CHEW TABLET PO SCH ×4 (05:13→20:39)
[2018-02-19] MEDS: morphine SULFATE 10 MG/ML, 1ML IVPush PRN ×2 (05:38→20:39)
[2018-02-19 07:20] VITALS: BP 107/57
[2018-02-19] MEDS: FUROSEMIDE 20 MG TABLET PO SCH ×2 (07:56→20:41)
[2018-02-19] MEDS: DOXYCYCLINE 100MG CAP PO SCH ×2 (07:56→20:39)
[2018-02-19] MEDS: OXYMETAZOLINE NASAL SPRAY 0.05%, 15ML NAS SCH ×2 (07:56→21:00)
[2018-02-19] MEDS: POTASSIUM CHLORIDE 20 MEQ TAB.ER.PRT PO SCH (07:56)
[2018-02-19] MEDS: LISINOPRIL 5 MG TABLET PO SCH (09:00)
[2018-02-19 14:45] VITALS: BP 97/42
[2018-02-19] MEDS: DOCUSATE 100 MG CAPSULE PO PRN (17:15)
[2018-02-19 18:32] VITALS: BP 105/58
[2018-02-19] MEDS ORDERED: MORPHINE SULFATE 4 MG/ML, 1ML ONE (20:33)
[2018-02-20 01:18] VITALS: BP 102/53
[2018-02-20] MEDS: PIPERACILLIN/TAZO/PMX 3.375GM 50 ML IV SCH ×4 (02:24→22:24)
[2018-02-20 05:39] LABS: ANION GAP 2 mmol/L (5-15); CALCIUM 8.2 mg/dL (8.5-10.1); CHLORIDE 99 mmol/L (98-107)
[2018-02-20 05:41] LABS: CREATININE 0.53 mg/dL (0.7-1.3)
[2018-02-20 05:51] LABS: BASOPHILS # (AUTO) 0.04 x10^3/uL (0-0.1); BASOPHILS % (AUTO) 1 % (0-1); EOSINOPHILS # (AUTO) 0.19 x10^3/uL (0-0.4); EOSINOPHILS % (AUTO) 3 % (1-7); LYMPHOCYTES # (AUTO) 0.63 x10^3/uL (1-3.4); LYMPHOCYTES % (AUTO) 8 % (22-44); MEAN CORPUSCULAR HGB CONC 32.9 g/dL (33.2-36.2); MEAN CORPUSCULAR VOLUME 91.1 fL (81-97); MEAN PLATELET VOLUME 7.5 fL (7.4-10.4); MONOCYTES % (AUTO) 12 % (2-9); NEUTROPHILS # (AUTO) 5.78 x10^3/uL (1.8-6.8); NEUTROPHILS % (AUTO) 77 % (42-75); PLATELET COUNT 358 x10^3/uL (130-400); RED BLOOD COUNT 3.15 x10^6/uL (4.38-5.82)
[2018-02-20] MEDS: METOPROLOL SUCCINATE 25 MG TAB.ER.24H PO SCH (06:13)
[2018-02-20] MEDS: LACTOBACILLUS CHEW TABLET PO SCH ×4 (06:13→22:24)
[2018-02-20 06:32] LABS: MD NO
[2018-02-20 08:04] VITALS: BP 105/59
[2018-02-20] MEDS: POTASSIUM CHLORIDE 20 MEQ TAB.ER.PRT PO SCH (08:06)
[2018-02-20] MEDS: DOXYCYCLINE 100MG CAP PO SCH ×2 (08:07→22:24)
[2018-02-20] MEDS: FUROSEMIDE 20 MG TABLET PO SCH ×2 (08:07→22:24)
[2018-02-20] MEDS: OXYMETAZOLINE NASAL SPRAY 0.05%, 15ML NAS SCH ×2 (09:00→21:00)
[2018-02-20] MEDS: LISINOPRIL 5 MG TABLET PO SCH (09:00)
[2018-02-20 13:18] VITALS: BP 99/49
[2018-02-20] MEDS: OPIUM/BELLADONNA SUPP.RECT 16.2-30 MG PR PRN (13:31)
[2018-02-20 21:58] VITALS: BP 108/62
[2018-02-21 00:21] VITALS: BP 111/58
[2018-02-21] MEDS: PIPERACILLIN/TAZO/PMX 3.375GM 50 ML IV SCH ×4 (02:00→20:29)
[2018-02-21] MEDS: LACTOBACILLUS CHEW TABLET PO SCH ×4 (06:10→20:29)
[2018-02-21] MEDS: METOPROLOL SUCCINATE 25 MG TAB.ER.24H PO SCH (06:11)
[2018-02-21 08:21] VITALS: BP 95/39
[2018-02-21] MEDS: LISINOPRIL 5 MG TABLET PO SCH (08:23)
[2018-02-21] MEDS: DOXYCYCLINE 100MG CAP PO SCH ×2 (08:24→20:29)
[2018-02-21] MEDS: POTASSIUM CHLORIDE 20 MEQ TAB.ER.PRT PO SCH (08:24)
[2018-02-21] MEDS: OXYMETAZOLINE NASAL SPRAY 0.05%, 15ML NAS SCH ×2 (08:25→21:00)
[2018-02-21] MEDS: FUROSEMIDE 20 MG TABLET PO SCH ×2 (08:26→20:29)
[2018-02-21 13:58] VITALS: BP 101/51
[2018-02-21] MEDS: OPIUM/BELLADONNA SUPP.RECT 16.2-30 MG PR PRN ×2 (14:12→20:44)
[2018-02-21 19:00] VITALS: BP 100/52
[2018-02-22 01:53] VITALS: BP 97/56
[2018-02-22] MEDS: PIPERACILLIN/TAZO/PMX 3.375GM 50 ML IV SCH ×4 (02:06→19:58)
[2018-02-22] MEDS: LACTOBACILLUS CHEW TABLET PO SCH ×4 (06:15→19:58)
[2018-02-22] MEDS: METOPROLOL SUCCINATE 25 MG TAB.ER.24H PO SCH (06:15)
[2018-02-22 09:00] VITALS: BP 106/49
[2018-02-22] MEDS: LISINOPRIL 5 MG TABLET PO SCH (09:00)
[2018-02-22] MEDS: OXYMETAZOLINE NASAL SPRAY 0.05%, 15ML NAS SCH ×4 (09:00→19:59)
[2018-02-22] MEDS: POTASSIUM CHLORIDE 20 MEQ TAB.ER.PRT PO SCH (09:05)
[2018-02-22] MEDS: DOXYCYCLINE 100MG CAP PO SCH ×2 (09:06→19:58)
[2018-02-22] MEDS: FUROSEMIDE 20 MG TABLET PO SCH ×2 (09:06→19:59)
[2018-02-22] MEDS: OXYBUTYNIN CHLORIDE 5 MG TABLET PO SCH ×2 (10:45→19:59)
[2018-02-22 14:21] VITALS: BP 102/50
[2018-02-22 19:52] VITALS: BP 104/51
[2018-02-23] MEDS: PIPERACILLIN/TAZO/PMX 3.375GM 50 ML IV SCH ×3 (01:58→14:03)
[2018-02-23 02:03] VITALS: BP 105/57
[2018-02-23] MEDS: LACTOBACILLUS CHEW TABLET PO SCH ×3 (06:00→15:39)
[2018-02-23] MEDS: METOPROLOL SUCCINATE 25 MG TAB.ER.24H PO SCH (06:00)
[2018-02-23 07:14] VITALS: BP 107/57
[2018-02-23] MEDS: OXYBUTYNIN CHLORIDE 5 MG TABLET PO SCH (08:49)
[2018-02-23] MEDS: FUROSEMIDE 20 MG TABLET PO SCH (08:49)
[2018-02-23] MEDS: DOXYCYCLINE 100MG CAP PO SCH (08:49)
[2018-02-23] MEDS: DOCUSATE 100 MG CAPSULE PO PRN (08:49)
[2018-02-23] MEDS: POTASSIUM CHLORIDE 20 MEQ TAB.ER.PRT PO SCH (08:49)
[2018-02-23] MEDS: LISINOPRIL 5 MG TABLET PO SCH (08:50)
[2018-02-23] MEDS: OXYMETAZOLINE NASAL SPRAY 0.05%, 15ML NAS SCH (08:50)
[2018-02-23] MEDS ORDERED: OPIU1SUP2 PR (11:08)
[2018-02-23] MEDS ORDERED: OXYB5TAB7 PO (11:08)
[2018-02-23] MEDS ORDERED: LISI5TAB7 PO (11:08)
[2018-02-23 13:50] VITALS: BP 103/56
== END 2018-02-23 18:05 | DRG 698 ==
LOC: ED 11:35 → EDIP 17:12 → 4NOR 18:56
PROVIDERS: ADMIT Internal Medicine; ATTEND Internal Medicine
PROC: 0T9B70Z Drainage of Bladder with Drainage Device, Via Natural or Artificial Opening (ICD-10-PCS; principal; 2018-02-17)
DX: T83.018A Breakdown (mechanical) of other urinary catheter, initial encounter (principal); J15.1 Pneumonia due to Pseudomonas; J85.0 Gangrene and necrosis of lung; J96.10 Chronic respiratory failure, unspecified whether with hypoxia or hypercapnia; I50.22 Chronic systolic (congestive) heart failure; N32.89 Other specified disorders of bladder; R31.0 Gross hematuria; I11.0 Hypertensive heart disease with heart failure; L89.90 Pressure ulcer of unspecified site, unspecified stage; Z99.81 Dependence on supplemental oxygen; D64.9 Anemia, unspecified; E78.5 Hyperlipidemia, unspecified; K40.90 Unilateral inguinal hernia, without obstruction or gangrene, not specified as recurrent; Z87.891 Personal history of nicotine dependence; Z79.82 Long term (current) use of aspirin; Z91.018 Allergy to other foods
CPT/HCPCS: 36415; 51702; 74178; 80048; 80053; 80061; 81001; 83036; 83735; 84439; 84443; 85025; 87086; 96374; 99285; J2543; Q9967; J2270

== ENCOUNTER 2018-07-05 12:27 | Inpatient (IN) | payer OTHER ==
[~2018-07-05] VITALS: Ht 167.6 cm; Wt 58.7 kg
[~2018-07-05 12:27] MED LIST changes: +OPIU1SUP2 PR; +OXYB5TAB7 PO
[2018-07-05 13:27] LABS: BASOPHILS # (AUTO) 0.01 x10^3/uL (0-0.1); BASOPHILS % (AUTO) 0 % (0-1); EOSINOPHILS # (AUTO) 0.02 x10^3/uL (0-0.4); EOSINOPHILS % (AUTO) 1 % (1-7); LYMPHOCYTES # (AUTO) 0.33 x10^3/uL (1-3.4); LYMPHOCYTES % (AUTO) 7 % (22-44); MD NO; MEAN CORPUSCULAR HEMOGLOBIN 27.5 pg (27.5-34.5); MEAN CORPUSCULAR HGB CONC 31.7 g/dL (33.2-36.2); MEAN CORPUSCULAR VOLUME 86.8 fL (81-97); MEAN PLATELET VOLUME 7.7 fL (7.4-10.4); MONOCYTES % (AUTO) 9 % (2-9); NEUTROPHILS # (AUTO) 3.78 x10^3/uL (1.8-6.8); NEUTROPHILS % (AUTO) 83 % (42-75); PLATELET COUNT 243 x10^3/uL (130-400); RED BLOOD COUNT 4.19 x10^6/uL (4.38-5.82); RED CELL DISTRIBUTION WIDTH 14.9 % (9.4-14.8)
[2018-07-05] MEDS ORDERED: SODIUM CHLORIDE FLUSH 10ML SYR IVF ONE (13:30)
[2018-07-05] MEDS ORDERED: PIPERACILLIN/TAZO/PMX 4.5GM 100 ML IVPB ONE (13:30)
[2018-07-05 13:40] LABS: ALBUMIN 2.4 g/dL (3.4-5.0); ANION GAP 4 mmol/L (5-15); CALCIUM 9.1 mg/dL (8.5-10.1); CHLORIDE 96 mmol/L (98-107); CREATININE 0.46 mg/dL (0.7-1.3)
[2018-07-05 13:44] LABS: TROPONIN I < 0.015 ng/mL (0.000-0.045)
[2018-07-05] MEDS ORDERED: TRAM50TA2 PO (14:14)
[2018-07-05] MEDS ORDERED: SODIUM CHLORIDE FLUSH 10ML SYR IVF PRN (14:30)
[2018-07-05 15:26] VITALS: BP 145/70
[2018-07-05] MEDS ORDERED: ONDANSETRON ODT 4 MG PO PRN (15:30)
[2018-07-05] MEDS ORDERED: hydrALAzine 20 MG/ML, 1ML IVPush PRN (15:30)
[2018-07-05] MEDS ORDERED: LABETALOL 5MG/ML, 20ML IVPush PRN (15:30)
[2018-07-05] MEDS ORDERED: ONDANSETRON 2MG/ML, 2ML IVPush PRN (15:30)
[2018-07-05] MEDS ORDERED: DOCUSATE 100 MG CAPSULE PO PRN (15:30)
[2018-07-05 17:40] VITALS: BP 130/68
[2018-07-05 19:04] VITALS: BP 166/80
[2018-07-05] MEDS: FUROSEMIDE 20 MG/2 ML IV SCH (19:22)
[2018-07-05] MEDS: HEPARIN 5,000 UNITS/ML, 1ML SQ SCH (19:23)
[2018-07-05] MEDS ORDERED: OMNIPAQUE 350 MG/ML, 75ML BOTTLE ONE (22:45)
[2018-07-05] MEDS: ATORVASTATIN 40 MG TABLET PO SCH (22:55)
[2018-07-06 03:05] VITALS: BP 128/69
[2018-07-06] MEDS: HEPARIN 5,000 UNITS/ML, 1ML SQ SCH (03:30)
[2018-07-06 05:00] LABS: BASOPHILS # (AUTO) 0.02 x10^3/uL (0-0.1); BASOPHILS % (AUTO) 1 % (0-1); EOSINOPHILS # (AUTO) 0.08 x10^3/uL (0-0.4); EOSINOPHILS % (AUTO) 2 % (1-7); LYMPHOCYTES # (AUTO) 0.31 x10^3/uL (1-3.4); LYMPHOCYTES % (AUTO) 8 % (22-44); MD NO; MEAN CORPUSCULAR HEMOGLOBIN 27.5 pg (27.5-34.5); MEAN CORPUSCULAR HGB CONC 31.7 g/dL (33.2-36.2); MEAN CORPUSCULAR VOLUME 86.8 fL (81-97); MEAN PLATELET VOLUME 8.1 fL (7.4-10.4); MONOCYTES # (AUTO) 0.54 x10^3/uL (0.2-0.8); MONOCYTES % (AUTO) 14 % (2-9); NEUTROPHILS % (AUTO) 76 % (42-75); PLATELET COUNT 206 x10^3/uL (130-400); RED BLOOD COUNT 3.56 x10^6/uL (4.38-5.82); RED CELL DISTRIBUTION WIDTH 15.2 % (9.4-14.8)
[2018-07-06 05:11] LABS: ANION GAP 2 mmol/L (5-15); CALCIUM 8.6 mg/dL (8.5-10.1); CHLORIDE 96 mmol/L (98-107); CREATININE 0.37 mg/dL (0.7-1.3)
[2018-07-06] MEDS ORDERED: ASPIRIN 81 MG TABLET EC PO SCH (06:00)
[2018-07-06] MEDS ORDERED: FUROSEMIDE 20 MG/2 ML ONE (08:02)
[2018-07-06] MEDS ORDERED: ASPIRIN 81 MG TABLET EC ONE (08:02)
[2018-07-06] MEDS ORDERED: METOPROLOL SUCCINATE 25 MG TAB.ER.24H ONE (08:02)
[2018-07-06] MEDS ORDERED: LISINOPRIL 5 MG TABLET ONE (08:03)
[2018-07-06] MEDS: LISINOPRIL 5 MG TABLET PO SCH (08:24)
[2018-07-06] MEDS: METOPROLOL SUCCINATE 25 MG TAB.ER.24H PO SCH (08:24)
[2018-07-06] MEDS: FUROSEMIDE 20 MG/2 ML IV SCH ×2 (08:24→17:42)
[2018-07-06 08:25] VITALS: BP 145/68
[2018-07-06 14:36] LABS: CHOL/HDL RATIO 2.7; LDL/HDL RATIO 1.5 (0.5-3.0); THYROID STIMULATING HORMONE 2.36 mIU/L (0.358-3.740)
[2018-07-06 15:40] LABS: HEMOGLOBIN A1C 5.2 % (4.2-6.3)
[2018-07-06 15:48] VITALS: BP 124/66
[2018-07-06 19:13] VITALS: BP 112/63
[2018-07-06] MEDS: ATORVASTATIN 40 MG TABLET PO SCH (20:06)
[2018-07-07 03:57] VITALS: BP 127/71
[2018-07-07] MEDS: METOPROLOL SUCCINATE 25 MG TAB.ER.24H PO SCH (05:05)
[2018-07-07 07:28] VITALS: BP 122/62
[2018-07-07 09:28] LABS: BASOPHILS # (AUTO) 0.02 x10^3/uL (0-0.1); BASOPHILS % (AUTO) 1 % (0-1); EOSINOPHILS # (AUTO) 0.07 x10^3/uL (0-0.4); EOSINOPHILS % (AUTO) 2 % (1-7); LYMPHOCYTES # (AUTO) 0.34 x10^3/uL (1-3.4); LYMPHOCYTES % (AUTO) 9 % (22-44); MD NO; MEAN CORPUSCULAR HEMOGLOBIN 27.3 pg (27.5-34.5); MEAN CORPUSCULAR HGB CONC 31.4 g/dL (33.2-36.2); MEAN CORPUSCULAR VOLUME 86.9 fL (81-97); MEAN PLATELET VOLUME 7.7 fL (7.4-10.4); MONOCYTES # (AUTO) 0.53 x10^3/uL (0.2-0.8); MONOCYTES % (AUTO) 14 % (2-9); NEUTROPHILS % (AUTO) 74 % (42-75); PLATELET COUNT 218 x10^3/uL (130-400); RED BLOOD COUNT 3.66 x10^6/uL (4.38-5.82); RED CELL DISTRIBUTION WIDTH 15.1 % (9.4-14.8)
[2018-07-07 09:39] LABS: CALCIUM 8.8 mg/dL (8.5-10.1); CHLORIDE 95 mmol/L (98-107); CREATININE 0.38 mg/dL (0.7-1.3)
[2018-07-07] MEDS ORDERED: FENTANYL PF 100 MCG/2ML ONE ×2 (09:44)
[2018-07-07] MEDS ORDERED: MIDAZOLAM 1 MG/ML, 5ML ONE (09:45)
[2018-07-07] MEDS ORDERED: NALOXONE 1 MG/ML, 2ML ONE (09:45)
[2018-07-07] MEDS ORDERED: FLUMAZENIL 0.1 MG/1 ML, 5ML ONE (09:45)
[2018-07-07 10:04] LABS: ANION GAP < 1 mmol/L (5-15)
[2018-07-07] MEDS: LISINOPRIL 5 MG TABLET PO SCH (12:09)
[2018-07-07] MEDS: FUROSEMIDE 20 MG/2 ML IV SCH (12:09)
[2018-07-07 12:39] VITALS: BP 107/62
[2018-07-07] MEDS: SODIUM CHLORIDE 0.9% 1,000 ML IV SCH (17:47)
[2018-07-07 19:44] VITALS: BP 129/73
[2018-07-07] MEDS ORDERED: GUAIFENESIN/DM 200-20MG, 10ML UDC ONE (19:47)
[2018-07-07] MEDS: ATORVASTATIN 40 MG TABLET PO SCH (20:36)
[2018-07-07] MEDS: GUAIFENESIN/COD200MG-20MG/10ML LIQUID PO PRN (20:37)
[2018-07-08 01:58] VITALS: BP 133/73
[2018-07-08 05:11] LABS: BASOPHILS # (AUTO) 0.01 x10^3/uL (0-0.1); BASOPHILS % (AUTO) 0 % (0-1); EOSINOPHILS # (AUTO) 0.08 x10^3/uL (0-0.4); EOSINOPHILS % (AUTO) 2 % (1-7); LYMPHOCYTES # (AUTO) 0.39 x10^3/uL (1-3.4); LYMPHOCYTES % (AUTO) 9 % (22-44); MD NO; MEAN CORPUSCULAR HEMOGLOBIN 27.4 pg (27.5-34.5); MEAN CORPUSCULAR HGB CONC 31.3 g/dL (33.2-36.2); MEAN CORPUSCULAR VOLUME 87.4 fL (81-97); MONOCYTES # (AUTO) 0.58 x10^3/uL (0.2-0.8); MONOCYTES % (AUTO) 13 % (2-9); NEUTROPHILS # (AUTO) 3.49 x10^3/uL (1.8-6.8); NEUTROPHILS % (AUTO) 77 % (42-75); PLATELET COUNT 211 x10^3/uL (130-400); RED CELL DISTRIBUTION WIDTH 14.9 % (9.4-14.8)
[2018-07-08 05:19] LABS: % IRON SATURATION 18 % (20-55); ANION GAP 2 mmol/L (5-15); CALCIUM 8.7 mg/dL (8.5-10.1); CHLORIDE 97 mmol/L (98-107); IRON LEVEL 32 mcg/dL (65-175); TOTAL IRON BINDING CAPACITY 178 mcg/dL (250-450)
[2018-07-08] MEDS: METOPROLOL SUCCINATE 25 MG TAB.ER.24H PO SCH (05:28)
[2018-07-08 07:15] VITALS: BP 121/67
[2018-07-08] MEDS: LISINOPRIL 5 MG TABLET PO SCH (08:59)
[2018-07-08] MEDS: SODIUM CHLORIDE 0.9% 1,000 ML IV SCH ×2 (09:00→12:33)
[2018-07-08 12:08] VITALS: BP 118/55
[2018-07-08 18:44] VITALS: BP 116/62
[2018-07-08] MEDS: ATORVASTATIN 40 MG TABLET PO SCH (20:40)
[2018-07-09 00:54] VITALS: BP 128/66
[2018-07-09] MEDS: SODIUM CHLORIDE 0.9% 1,000 ML IV SCH ×4 (02:06→22:03)
[2018-07-09 05:26] VITALS: BP 124/64
[2018-07-09] MEDS: METOPROLOL SUCCINATE 25 MG TAB.ER.24H PO SCH (05:27)
[2018-07-09 07:09] VITALS: BP 116/59
[2018-07-09] MEDS: LISINOPRIL 5 MG TABLET PO SCH (09:00)
[2018-07-09 09:37] LABS: CALCIUM 8.5 mg/dL (8.5-10.1); CREATININE 0.37 mg/dL (0.7-1.3)
[2018-07-09 09:55] LABS: ANION GAP 4 mmol/L (5-15); CHLORIDE 99 mmol/L (98-107)
[2018-07-09 13:04] VITALS: BP 116/67
[2018-07-09] MEDS: FERROUS SULFATE 325 MG TABLET PO SCH ×2 (13:23→16:51)
[2018-07-09 18:43] VITALS: BP 126/72
[2018-07-09] MEDS: ATORVASTATIN 40 MG TABLET PO SCH (22:08)
[2018-07-09] MEDS: GUAIFENESIN/COD200MG-20MG/10ML LIQUID PO PRN (23:07)
[2018-07-10 03:14] VITALS: BP 122/73
[2018-07-10] MEDS: SODIUM CHLORIDE 0.9% 1,000 ML IV SCH ×4 (05:17→23:30)
[2018-07-10] MEDS: METOPROLOL SUCCINATE 25 MG TAB.ER.24H PO SCH (05:18)
[2018-07-10 07:48] VITALS: BP 127/78
[2018-07-10] MEDS: FERROUS SULFATE 325 MG TABLET PO SCH ×3 (08:51→16:58)
[2018-07-10] MEDS: LISINOPRIL 5 MG TABLET PO SCH (08:51)
[2018-07-10 13:13] VITALS: BP 132/76
[2018-07-10 14:15] LABS: BASOPHILS % (AUTO) 0 % (0-1); EOSINOPHILS # (AUTO) 0.11 x10^3/uL (0-0.4); EOSINOPHILS % (AUTO) 2 % (1-7); LYMPHOCYTES # (AUTO) 0.39 x10^3/uL (1-3.4); LYMPHOCYTES % (AUTO) 8 % (22-44); MD NO; MEAN CORPUSCULAR HEMOGLOBIN 27.9 pg (27.5-34.5); MEAN CORPUSCULAR HGB CONC 31.6 g/dL (33.2-36.2); MEAN PLATELET VOLUME 7.9 fL (7.4-10.4); MONOCYTES # (AUTO) 0.44 x10^3/uL (0.2-0.8); MONOCYTES % (AUTO) 9 % (2-9); NEUTROPHILS # (AUTO) 3.79 x10^3/uL (1.8-6.8); NEUTROPHILS % (AUTO) 80 % (42-75); PLATELET COUNT 220 x10^3/uL (130-400); RED BLOOD COUNT 4.09 x10^6/uL (4.38-5.82); RED CELL DISTRIBUTION WIDTH 15.2 % (9.4-14.8)
[2018-07-10 14:24] LABS: ALANINE AMINOTRANSFERASE 18 U/L (12-78); ANION GAP 2 mmol/L (5-15); CALCIUM 8.7 mg/dL (8.5-10.1); CHLORIDE 99 mmol/L (98-107); CREATININE 0.42 mg/dL (0.7-1.3)
[2018-07-10 14:26] LABS: ALKALINE PHOSPHATASE 77 U/L (45-117); BILIRUBIN,TOTAL 0.3 mg/dL (0.2-1.0); TOTAL PROTEIN 6.8 g/dL (6.4-8.2)
[2018-07-10 19:29] VITALS: BP 130/71
[2018-07-10] MEDS: ATORVASTATIN 40 MG TABLET PO SCH (20:58)
[2018-07-10] MEDS: CIPROFLOXACIN 500 MG TABLET PO SCH (20:59)
[2018-07-10] MEDS: ACETAMINOPHEN 325 MG TABLET PO PRN (21:10)
[2018-07-11 02:25] VITALS: BP 121/65
[2018-07-11 05:22] LABS: ALBUMIN 1.7 g/dL (3.4-5.0)
[2018-07-11 05:38] LABS: ANION GAP 3 mmol/L (5-15)
[2018-07-11 05:39] LABS: CHLORIDE 101 mmol/L (98-107)
[2018-07-11 05:42] LABS: ALANINE AMINOTRANSFERASE 13 U/L (12-78); ALKALINE PHOSPHATASE 60 U/L (45-117); BILIRUBIN,TOTAL 0.2 mg/dL (0.2-1.0); CREATININE 0.26 mg/dL (0.7-1.3); TOTAL PROTEIN 5.6 g/dL (6.4-8.2)
[2018-07-11 06:20] LABS: MD YES
[2018-07-11 06:21] LABS: MEAN CORPUSCULAR VOLUME 87.4 fL (81-97); PLATELET COUNT 168 x10^3/uL (130-400); RED BLOOD COUNT 3.35 x10^6/uL (4.38-5.82); RED CELL DISTRIBUTION WIDTH 15.1 % (9.4-14.8)
[2018-07-11 06:23] LABS: BAND#(MANUAL) 0.03 x10^3/uL; BANDS%(MANUAL) 1 % (0-7); BASOS#(MANUAL) 0.03 x10^3/uL (0-0.1); BASOS% (MANUAL) 1 % (0-1); EOS#(MANUAL) 0.12 x10^3/uL (0.0-0.4); EOS% (MANUAL) 4 % (1-7); LYMPH#(MANUAL) 0.22 x10^3/uL (1-3.4); LYMPHS% (MANUAL) 7 % (22-44); MONOS#(MANUAL) 0.34 x10^3/uL (0.3-2.7); MONOS% (MANUAL) 11 % (2-9); SEG#(MANUAL) 2.36 x10^3/uL (1.8-6.8); SEGS% (MANUAL) 76 % (42-75)
[2018-07-11 06:24] LABS: <PLATELET ESTIMATE> ADEQUATE; <PLT MORPHOLOGY> NORMAL PLT MORPH; ANISOCYTOSIS 1+
[2018-07-11 06:28] VITALS: BP 149/67
[2018-07-11] MEDS: METOPROLOL SUCCINATE 25 MG TAB.ER.24H PO SCH (06:28)
[2018-07-11] MEDS: SODIUM CHLORIDE 0.9% 1,000 ML IV SCH ×2 (06:30→13:02)
[2018-07-11] MEDS: GUAIFENESIN/COD200MG-20MG/10ML LIQUID PO PRN ×2 (08:50→17:12)
[2018-07-11] MEDS: ACETAMINOPHEN 325 MG TABLET PO PRN ×2 (08:50→13:02)
[2018-07-11 09:04] VITALS: BP 131/65
[2018-07-11] MEDS: LISINOPRIL 5 MG TABLET PO SCH (09:27)
[2018-07-11] MEDS: FERROUS SULFATE 325 MG TABLET PO SCH ×3 (09:27→17:12)
[2018-07-11] MEDS: CIPROFLOXACIN 500 MG TABLET PO SCH ×2 (09:27→20:49)
[2018-07-11] MEDS: AcetaZOLAMIDE INJ 500 MG IVPush SCH (12:50)
[2018-07-11 14:50] VITALS: BP 121/67
[2018-07-11 19:38] VITALS: BP 134/77
[2018-07-11] MEDS: ATORVASTATIN 40 MG TABLET PO SCH (20:50)
[2018-07-12] VITALS (7 sets, daily range): BP systolic 102–124; BP diastolic 51–64
[2018-07-12] MEDS: AcetaZOLAMIDE INJ 500 MG IVPush SCH ×3 (00:22→23:43)
[2018-07-12] MEDS: METOPROLOL SUCCINATE 25 MG TAB.ER.24H PO SCH (05:13)
[2018-07-12] MEDS: SODIUM CHLORIDE 0.9% 1,000 ML IV SCH (07:39)
[2018-07-12] MEDS: FERROUS SULFATE 325 MG TABLET PO SCH ×3 (09:13→18:20)
[2018-07-12] MEDS: GUAIFENESIN/COD200MG-20MG/10ML LIQUID PO PRN (09:13)
[2018-07-12] MEDS: CIPROFLOXACIN 500 MG TABLET PO SCH ×2 (09:13→20:19)
[2018-07-12] MEDS: LISINOPRIL 5 MG TABLET PO SCH (09:13)
[2018-07-12] MEDS: ACETAMINOPHEN 325 MG TABLET PO PRN ×2 (09:45→23:53)
[2018-07-12 13:01] LABS: ANION GAP 2 mmol/L (5-15); CALCIUM 8.7 mg/dL (8.5-10.1); CHLORIDE 102 mmol/L (98-107); CREATININE 0.39 mg/dL (0.7-1.3)
[2018-07-12] MEDS: ATORVASTATIN 40 MG TABLET PO SCH (20:19)
[2018-07-13 01:55] VITALS: BP 112/61
[2018-07-13 05:12] LABS: BASOPHILS # (AUTO) 0.02 x10^3/uL (0-0.1); BASOPHILS % (AUTO) 0 % (0-1); EOSINOPHILS # (AUTO) 0.09 x10^3/uL (0-0.4); EOSINOPHILS % (AUTO) 2 % (1-7); LYMPHOCYTES % (AUTO) 11 % (22-44); MD NO; MEAN CORPUSCULAR HEMOGLOBIN 28.1 pg (27.5-34.5); MEAN CORPUSCULAR VOLUME 88.1 fL (81-97); MEAN PLATELET VOLUME 8.2 fL (7.4-10.4); MONOCYTES # (AUTO) 0.47 x10^3/uL (0.2-0.8); MONOCYTES % (AUTO) 13 % (2-9); NEUTROPHILS # (AUTO) 2.72 x10^3/uL (1.8-6.8); NEUTROPHILS % (AUTO) 74 % (42-75); PLATELET COUNT 185 x10^3/uL (130-400); RED BLOOD COUNT 3.57 x10^6/uL (4.38-5.82); RED CELL DISTRIBUTION WIDTH 14.8 % (9.4-14.8)
[2018-07-13 05:20] LABS: ANION GAP 2 mmol/L (5-15); CALCIUM 8.7 mg/dL (8.5-10.1); CHLORIDE 103 mmol/L (98-107); CREATININE 0.43 mg/dL (0.7-1.3)
[2018-07-13 05:26] VITALS: BP 123/57
[2018-07-13] MEDS: METOPROLOL SUCCINATE 25 MG TAB.ER.24H PO SCH (05:27)
[2018-07-13 07:16] VITALS: BP 116/60
[2018-07-13] MEDS: CIPROFLOXACIN 500 MG TABLET PO SCH ×2 (09:22→20:39)
[2018-07-13] MEDS: LISINOPRIL 5 MG TABLET PO SCH (09:22)
[2018-07-13] MEDS: FERROUS SULFATE 325 MG TABLET PO SCH ×3 (09:22→18:22)
[2018-07-13] MEDS: GUAIFENESIN/COD200MG-20MG/10ML LIQUID PO PRN (12:22)
[2018-07-13] MEDS: AcetaZOLAMIDE INJ 500 MG IVPush SCH (12:22)
[2018-07-13] MEDS: ACETAMINOPHEN 325 MG TABLET PO PRN ×2 (12:50→20:53)
[2018-07-13 14:03] VITALS: BP 105/58
[2018-07-13] MEDS: LIDODERM 5% PATCH TD SCH (15:02)
[2018-07-13 19:41] VITALS: BP 117/66
[2018-07-13] MEDS: ATORVASTATIN 40 MG TABLET PO SCH (20:39)
[2018-07-14 00:02] VITALS: BP 124/65
[2018-07-14] MEDS: AcetaZOLAMIDE INJ 500 MG IVPush SCH ×3 (00:04→22:49)
[2018-07-14] MEDS: ACETAMINOPHEN 325 MG TABLET PO PRN ×2 (03:31→13:52)
[2018-07-14 05:29] VITALS: BP 105/56
[2018-07-14] MEDS: METOPROLOL SUCCINATE 25 MG TAB.ER.24H PO SCH (05:30)
[2018-07-14] MEDS: CIPROFLOXACIN 500 MG TABLET PO SCH ×2 (08:16→20:51)
[2018-07-14] MEDS: LISINOPRIL 5 MG TABLET PO SCH (08:17)
[2018-07-14] MEDS: FERROUS SULFATE 325 MG TABLET PO SCH ×3 (08:18→16:12)
[2018-07-14 08:52] VITALS: BP 107/65
[2018-07-14 16:10] VITALS: BP 118/69
[2018-07-14] MEDS: LIDODERM 5% PATCH TD SCH (16:12)
[2018-07-14 20:00] VITALS: BP 128/67
[2018-07-14] MEDS: ATORVASTATIN 40 MG TABLET PO SCH (20:51)
[2018-07-15 02:00] VITALS: BP 144/75
[2018-07-15 05:51] VITALS: BP 118/64
[2018-07-15] MEDS: METOPROLOL SUCCINATE 25 MG TAB.ER.24H PO SCH (05:53)
[2018-07-15 07:38] VITALS: BP 128/65
[2018-07-15 09:38] VITALS: BP 120/61
[2018-07-15] MEDS: FERROUS SULFATE 325 MG TABLET PO SCH ×3 (09:40→18:18)
[2018-07-15] MEDS: LISINOPRIL 5 MG TABLET PO SCH (09:41)
[2018-07-15] MEDS: ACETAMINOPHEN 325 MG TABLET PO PRN ×3 (09:41→23:13)
[2018-07-15] MEDS: CIPROFLOXACIN 500 MG TABLET PO SCH ×2 (09:41→20:34)
[2018-07-15] MEDS: AcetaZOLAMIDE INJ 500 MG IVPush SCH ×2 (12:49→22:58)
[2018-07-15] MEDS ORDERED: METO25TA91 PO (13:22)
[2018-07-15] MEDS ORDERED: FERR-51 PO (13:22)
[2018-07-15] MEDS ORDERED: LISI5TAB7 PO (13:22)
[2018-07-15] MEDS ORDERED: DOCU-131 PO (13:22)
[2018-07-15] MEDS ORDERED: ATOR20TA9 PO (13:23)
[2018-07-15 14:00] VITALS: BP 116/65
[2018-07-15] MEDS: LIDODERM 5% PATCH TD SCH (18:16)
[2018-07-15 19:37] VITALS: BP 132/73
[2018-07-15] MEDS: ATORVASTATIN 40 MG TABLET PO SCH (20:34)
[2018-07-16 01:23] VITALS: BP 99/59
[2018-07-16 06:05] VITALS: BP 110/60
[2018-07-16] MEDS: METOPROLOL SUCCINATE 25 MG TAB.ER.24H PO SCH (06:10)
[2018-07-16 07:35] VITALS: BP 108/61
[2018-07-16] MEDS: FERROUS SULFATE 325 MG TABLET PO SCH ×3 (10:03→15:57)
[2018-07-16] MEDS: ACETAMINOPHEN 325 MG TABLET PO PRN ×2 (10:03→15:58)
[2018-07-16] MEDS: CIPROFLOXACIN 500 MG TABLET PO SCH (10:03)
[2018-07-16] MEDS: LISINOPRIL 5 MG TABLET PO SCH (10:04)
[2018-07-16] MEDS: AcetaZOLAMIDE INJ 500 MG IVPush SCH (11:35)
[2018-07-16 14:00] VITALS: BP 136/67
[2018-07-16] MEDS: LIDODERM 5% PATCH TD SCH (17:43)
== END 2018-07-16 18:29 | disposition hospice, home (50) | DRG 177 ==
LOC: ED 13:43 → 3NE 14:29 → 5SO 16:59 → 3NE 17:18 → 5SO 17:28
PROVIDERS: ADMIT Internal Medicine; ATTEND Internal Medicine
PROC: 0BBF3ZX Excision of Right Lower Lung Lobe, Percutaneous Approach, Diagnostic (ICD-10-PCS; principal; 2018-07-07)
PROC: 0WB83ZX Excision of Chest Wall, Percutaneous Approach, Diagnostic (ICD-10-PCS; 2018-07-07)
DX: J15.1 Pneumonia due to Pseudomonas (principal); E43 Unspecified severe protein-calorie malnutrition; I50.43 Acute on chronic combined systolic (congestive) and diastolic (congestive) heart failure; J96.21 Acute and chronic respiratory failure with hypoxia; J96.22 Acute and chronic respiratory failure with hypercapnia; C34.90 Malignant neoplasm of unspecified part of unspecified bronchus or lung; I42.9 Cardiomyopathy, unspecified; J44.0 Chronic obstructive pulmonary disease with (acute) lower respiratory infection; J98.11 Atelectasis; R64 Cachexia; I50.9 Heart failure, unspecified; D50.9 Iron deficiency anemia, unspecified; D63.8 Anemia in other chronic diseases classified elsewhere; E11.622 Type 2 diabetes mellitus with other skin ulcer; E78.5 Hyperlipidemia, unspecified; I11.0 Hypertensive heart disease with heart failure; I44.7 Left bundle-branch block, unspecified; L89.90 Pressure ulcer of unspecified site, unspecified stage; L98.499 Non-pressure chronic ulcer of skin of other sites with unspecified severity; R13.10 Dysphagia, unspecified; M41.9 Scoliosis, unspecified; Z51.5 Encounter for palliative care; Z66 Do not resuscitate; Z77.090 Contact with and (suspected) exposure to asbestos; Z86.14 Personal history of Methicillin resistant Staphylococcus aureus infection; Z87.11 Personal history of peptic ulcer disease; Z87.891 Personal history of nicotine dependence; Z99.81 Dependence on supplemental oxygen; Z68.20 Body mass index [BMI] 20.0-20.9, adult; Z91.018 Allergy to other foods
CPT/HCPCS: 32405; 36415; 71045; 71260; 74230; 77012; 80048; 80053; 80061; 82040; 83036; 83540; 83550; 83605; 83735; 83880; 84100; 84145; 84443; 84484; 85025; 87040; 87070; 87075; 87077; 87081; 87102; 87116; 87186; 87205; 87206; 88305; 93005; 93306; 93970; 96365; 99156; 99157; 99285; G0378; J1644; J2250; J2543; J3010; Q9967; J1120; J1940; J2310; J7030